=== PATIENT | male | born 1965 | race Caucasian/White ===

== ENCOUNTER 2017-02-08 14:08 | Inpatient (IN) | payer OTHER ==
[~2017-02-08] VITALS: Ht 172.7 cm; Wt 110.1 kg
[2017-02-08] MEDS ORDERED: SODIUM CHLORIDE 0.9% 1,000 ML IV ONE (15:13)
[2017-02-08] MEDS ORDERED: LEVOFLOXACIN/PMX 750MG/150ML 150 ML IVPB ONE (15:30)
[2017-02-08] MEDS ORDERED: ALBUTEROL/IPRATROPIUM 2.5MG/0.5MG, 3 ML NPPB ONE (15:30)
[2017-02-08 15:55] LABS: HEMOGLOBIN 14.6 g/dL (13.7-18.0)
[2017-02-08] MEDS ORDERED: LEVOFLOXACIN/PMX 750MG/150ML 150 ML ONE (15:55)
[2017-02-08 16:07] LABS: BLOOD UREA NITROGEN 27 mg/dL (7-18)
[2017-02-08 16:10] LABS: IS PT STATUS REG ER OR PRE ER? YES
[2017-02-08] MEDS ORDERED: INSULIN DETEMIR 100 UNITS/ML, PEN SQ-INSULIN SCH (17:30)
[2017-02-08] MEDS ORDERED: POLYETHYLENE GLYCOL 17 GM PACKET PO PRN (17:30)
[2017-02-08] MEDS ORDERED: DEXTROSE 4 GM TAB.CHEW PO PRN (17:30)
[2017-02-08] MEDS ORDERED: ONDANSETRON 2MG/ML, 2ML IVP PRN (17:30)
[2017-02-08] MEDS ORDERED: BISACODYL 10 MG SUPP PR PRN (17:30)
[2017-02-08] MEDS ORDERED: ONDANSETRON ODT 4 MG PO PRN (17:30)
[2017-02-08] MEDS ORDERED: ACETAMINOPHEN 325 MG TABLET PO PRN (17:30)
[2017-02-08] MEDS ORDERED: SODIUM CHLORIDE 0.9% 1,000 ML IV SCH (17:30)
[2017-02-08] MEDS ORDERED: DEXTROSE 50%, 50ML SYRINGE IVPush PRN (17:30)
[2017-02-08] MEDS ORDERED: GLUCAGON 1 MG IM PRN (17:30)
[2017-02-08] MEDS ORDERED: DOCUSATE 100 MG CAPSULE PO PRN (17:30)
[2017-02-08] MEDS ORDERED: CEFTRIAXONE PMX 1GM/50ML 50 ML ONE (18:28)
[2017-02-08] MEDS: CEFTRIAXONE PMX 1GM/50ML 50 ML IV SCH (18:29)
[2017-02-08 18:45] VITALS: BP 130/63
[2017-02-08] MEDS ORDERED: OMNIPAQUE 350 MG/ML, 150 ML BOTTLE ONE (18:55)
[2017-02-08] MEDS: HYDROcodone/APAP 5/325 TABLET PO PRN (19:56)
[2017-02-08 20:01] VITALS: BP 130/63
[2017-02-08] MEDS: ATORVASTATIN 10 MG TABLET PO SCH (21:12)
[2017-02-08] MEDS: SODIUM CHLORIDE FLUSH 10ML SYR IVF SCH (21:13)
[2017-02-08] MEDS: methylPREDNISolone SOD SUCC 125 MG/2 ML IVPush SCH (21:13)
[2017-02-08] MEDS: HEPARIN 5,000 UNITS/ML, 1ML SQ SCH (21:13)
[2017-02-08] MEDS: DOXYCYCLINE 50MG CAPSULE PO SCH (21:14)
[2017-02-08] MEDS: NICOTINE 21 MG/24 HR PATCH.TD24 TD SCH (21:19)
[2017-02-08] MEDS: GUAIFENESIN/DM 200-20MG, 10ML UDC PO PRN (21:47)
[2017-02-08] MEDS: SODIUM CHLORIDE 0.9% 1,000 ML IV SCH (22:10)
[2017-02-08] MEDS: INSULIN REGULAR 100 UNITS/ML, 3ML VIAL SQ-INSULIN SCH (22:10)
[2017-02-08 23:51] LABS: RAPID INFLUENZA A Negative (Negative); RAPID INFLUENZA B Negative (Negative)
[2017-02-09] MEDS ORDERED: ALBUTEROL SULFATE 2.5 MG/3 ML NPPB PRN (01:00)
[2017-02-09 03:25] VITALS: BP 111/57
[2017-02-09] MEDS: ASPIRIN 81 MG TABLET EC PO SCH (05:27)
[2017-02-09] MEDS: HEPARIN 5,000 UNITS/ML, 1ML SQ SCH ×3 (05:27→20:49)
[2017-02-09] MEDS: GUAIFENESIN/DM 200-20MG, 10ML UDC PO PRN (05:28)
[2017-02-09] MEDS: SODIUM CHLORIDE 0.9% 1,000 ML IV SCH ×2 (05:29→19:53)
[2017-02-09] MEDS ORDERED: ASPI-496 PO (06:06)
[2017-02-09] MEDS ORDERED: ATOR10TA9 PO (06:06)
[2017-02-09 06:21] LABS: BLOOD UREA NITROGEN 39 mg/dL (7-18)
[2017-02-09] MEDS: ALBUTEROL/IPRATROPIUM 2.5MG/0.5MG, 3 ML NPPB SCH ×4 (07:15→20:42)
[2017-02-09] MEDS: INSULIN REGULAR 100 UNITS/ML, 3ML VIAL SQ-INSULIN SCH ×2 (07:50→11:00)
[2017-02-09] MEDS ORDERED: INSULIN DETEMIR 100 UNITS/ML, PEN SQ-INSULIN SCH (08:00)
[2017-02-09] MEDS: HYDROcodone/APAP 5/325 TABLET PO PRN ×2 (08:20→17:03)
[2017-02-09 08:30] VITALS: BP 104/63
[2017-02-09] MEDS ORDERED: HYDROCHLOROTHIAZIDE 25 MG TABLET PO SCH (09:00)
[2017-02-09] MEDS: SODIUM CHLORIDE FLUSH 10ML SYR IVF SCH ×2 (10:12→20:50)
[2017-02-09] MEDS: methylPREDNISolone SOD SUCC 125 MG/2 ML IVPush SCH ×2 (10:14→20:49)
[2017-02-09] MEDS: LOSARTAN 50MG TABLET PO SCH (10:14)
[2017-02-09] MEDS: DOXYCYCLINE 50MG CAPSULE PO SCH ×2 (10:14→20:50)
[2017-02-09] MEDS: TRIAMTERENE-HCTZ 37.5/25 MG TABLET PO SCH (10:14)
[2017-02-09 11:56] LABS: IS PT STATUS REG ER OR PRE ER? NO
[2017-02-09] MEDS: INSULIN ASPART 100 UNITS/ML, PEN SQ-INSULIN SCH ×3 (12:23→20:04)
[2017-02-09 13:33] LABS: BLOOD UREA NITROGEN 39 mg/dL (7-18)
[2017-02-09 14:41] VITALS: BP 121/68
[2017-02-09] MEDS ORDERED: INSULIN ASPART 100 UNITS/ML, PEN SQ-INSULIN SCH (16:00)
[2017-02-09] MEDS: CEFTRIAXONE PMX 1GM/50ML 50 ML IV SCH (16:52)
[2017-02-09] MEDS: INSULIN DETEMIR 100 UNITS/ML, PEN SQ-INSULIN SCH ×2 (17:20→20:01)
[2017-02-09 19:45] VITALS: BP 119/67
[2017-02-09] MEDS: ATORVASTATIN 10 MG TABLET PO SCH (20:49)
[2017-02-09] MEDS: NICOTINE 21 MG/24 HR PATCH.TD24 TD SCH (20:50)
[2017-02-10 03:37] VITALS: BP 126/70
[2017-02-10 05:08] LABS: HEMOGLOBIN 14.9 g/dL (13.7-18.0)
[2017-02-10] MEDS: HEPARIN 5,000 UNITS/ML, 1ML SQ SCH ×3 (05:11→21:02)
[2017-02-10] MEDS: ASPIRIN 81 MG TABLET EC PO SCH (05:11)
[2017-02-10] MEDS: INSULIN ASPART 100 UNITS/ML, PEN SQ-INSULIN SCH ×4 (05:12→21:04)
[2017-02-10 05:25] LABS: ASPARTATE AMINO TRANSFERASE 41 U/L (15-37); BLOOD UREA NITROGEN 38 mg/dL (7-18)
[2017-02-10] MEDS: INSULIN DETEMIR 100 UNITS/ML, PEN SQ-INSULIN SCH ×3 (05:51→16:31)
[2017-02-10 07:14] VITALS: BP 122/73
[2017-02-10] MEDS: ALBUTEROL/IPRATROPIUM 2.5MG/0.5MG, 3 ML NPPB SCH ×4 (07:25→19:16)
[2017-02-10] MEDS: SODIUM CHLORIDE 0.9% 1,000 ML IV SCH ×2 (09:22→23:44)
[2017-02-10] MEDS: SODIUM CHLORIDE FLUSH 10ML SYR IVF SCH ×2 (09:23→21:02)
[2017-02-10] MEDS: methylPREDNISolone SOD SUCC 125 MG/2 ML IVPush SCH ×2 (09:26→21:02)
[2017-02-10] MEDS: TRIAMTERENE-HCTZ 37.5/25 MG TABLET PO SCH (09:28)
[2017-02-10] MEDS: LOSARTAN 50MG TABLET PO SCH (09:28)
[2017-02-10] MEDS: DOXYCYCLINE 50MG CAPSULE PO SCH ×2 (09:29→21:03)
[2017-02-10] MEDS: GUAIFENESIN/DM 200-20MG, 10ML UDC PO PRN ×2 (10:04→17:21)
[2017-02-10 11:37] LABS: BLOOD UREA NITROGEN 35 mg/dL (7-18)
[2017-02-10] MEDS ORDERED: SODIUM POLYSTYRENE SULFONATE ORAL SUSP PO ONE (12:00)
[2017-02-10] MEDS ORDERED: INSULIN ASPART 100 UNITS/ML, PEN SQ-INSULIN ONE (12:30)
[2017-02-10 13:12] VITALS: BP 101/55
[2017-02-10] MEDS: CEFTRIAXONE PMX 1GM/50ML 50 ML IV SCH (17:18)
[2017-02-10] MEDS: HYDROcodone/APAP 5/325 TABLET PO PRN (20:11)
[2017-02-10 20:34] VITALS: BP 120/63
[2017-02-10] MEDS: NICOTINE 21 MG/24 HR PATCH.TD24 TD SCH (21:00)
[2017-02-10] MEDS: ATORVASTATIN 10 MG TABLET PO SCH (21:01)
[2017-02-11 03:07] VITALS: BP 120/71
[2017-02-11] MEDS: ASPIRIN 81 MG TABLET EC PO SCH (05:48)
[2017-02-11] MEDS: HEPARIN 5,000 UNITS/ML, 1ML SQ SCH ×2 (05:48→13:00)
[2017-02-11 06:43] LABS: BLOOD UREA NITROGEN 31 mg/dL (7-18)
[2017-02-11 07:10] VITALS: BP 112/67
[2017-02-11] MEDS: ALBUTEROL/IPRATROPIUM 2.5MG/0.5MG, 3 ML NPPB SCH ×3 (07:15→13:56)
[2017-02-11] MEDS: INSULIN ASPART 100 UNITS/ML, PEN SQ-INSULIN SCH ×2 (07:29→11:56)
[2017-02-11] MEDS: INSULIN DETEMIR 100 UNITS/ML, PEN SQ-INSULIN SCH (07:51)
[2017-02-11] MEDS: DOXYCYCLINE 50MG CAPSULE PO SCH (09:49)
[2017-02-11] MEDS: LOSARTAN 50MG TABLET PO SCH (09:50)
[2017-02-11] MEDS: SODIUM CHLORIDE FLUSH 10ML SYR IVF SCH (09:50)
[2017-02-11] MEDS: methylPREDNISolone SOD SUCC 125 MG/2 ML IVPush SCH (09:50)
[2017-02-11] MEDS ORDERED: CEFD300C2 PO (11:22)
[2017-02-11] MEDS ORDERED: IPRA3AMP NPPB (11:22)
[2017-02-11] MEDS ORDERED: DOXY50CA42 PO (11:22)
[2017-02-11] MEDS ORDERED: ALBU8.5H3 INH (11:22)
[2017-02-11] MEDS ORDERED: PRED20TA PO (11:22)
[2017-02-11] MEDS: SODIUM CHLORIDE 0.9% 1,000 ML IV SCH (11:37)
[2017-02-11 13:48] VITALS: BP 116/54
== END 2017-02-11 14:53 | disposition home or self-care (01) | DRG 189 ==
LOC: ED 15:31 → EDIP 16:50 → 4NOR 18:35 → DCLOUNGE 02-11 14:31
PROVIDERS: ADMIT Internal Medicine; ATTEND Internal Medicine
DX: J96.01 Acute respiratory failure with hypoxia (principal); J44.1 Chronic obstructive pulmonary disease with (acute) exacerbation; E87.1 Hypo-osmolality and hyponatremia; E78.00 Pure hypercholesterolemia, unspecified; E78.5 Hyperlipidemia, unspecified; F17.210 Nicotine dependence, cigarettes, uncomplicated; G47.33 Obstructive sleep apnea (adult) (pediatric); E87.5 Hyperkalemia; I12.9 Hypertensive chronic kidney disease with stage 1 through stage 4 chronic kidney disease, or unspecified chronic kidney disease; N18.9 Chronic kidney disease, unspecified; E10.22 Type 1 diabetes mellitus with diabetic chronic kidney disease; N28.9 Disorder of kidney and ureter, unspecified; Z82.49 Family history of ischemic heart disease and other diseases of the circulatory system; Z82.5 Family history of asthma and other chronic lower respiratory diseases; Z98.890 Other specified postprocedural states; Z79.4 Long term (current) use of insulin; Z79.899 Other long term (current) drug therapy; Z71.6 Tobacco abuse counseling
CPT/HCPCS: 36415; 71010; 71275; 80048; 80053; 82040; 82962; 84132; 84484; 85025; 87400; 93005; 94640; 96374; J0696; J1644; J1815; J1956; J7620; Q9967; J2930; J7030; J7512

== ENCOUNTER → 2017-05-13 | Outpatient (CLI) | payer OTHER ==
[~2017-05-13] MED LIST: ALBU8.5H3 INH; ASPI-496 PO; ATOR10TA9 PO; CEFD300C37 PO; DOXY50CA42 PO; IPRA3AMP NPPB; PRED20TA PO
== END | disposition home or self-care (01) ==
LOC: CARD 14:24
PROVIDERS: ATTEND Internal Medicine Critical Care Medicine
DX: R06.02 Shortness of breath (principal)
CPT/HCPCS: 94060; 94620; 94726; 94729

== ENCOUNTER → 2018-02-09 | Outpatient (CLI) | payer OTHER ==
[~2018-02-09] MED LIST changes: -ALBU8.5H3 INH; +ALBU8.5H8 INH
== END | disposition home or self-care (01) ==
LOC: CFH 08:51
PROVIDERS: ATTEND Registered Nurse
DX: Z12.2 Encounter for screening for malignant neoplasm of respiratory organs (principal); I25.10 Atherosclerotic heart disease of native coronary artery without angina pectoris; Z87.891 Personal history of nicotine dependence
CPT/HCPCS: G0297

== ENCOUNTER 2020-10-09 11:03 | Inpatient (IN) | payer OTHER ==
[~2020-10-09] VITALS: Ht 170.2 cm; Wt 120.3 kg
[~2020-10-09 11:03] MED LIST changes: -IPRA3AMP NPPB; +IPRA3AMP30 NPPB
[2020-10-09] MEDS ORDERED: ALBUTEROL/IPRATROPIUM 2.5MG/0.5MG, 3 ML ONE (11:45)
[2020-10-09] MEDS: ALBUTEROL/IPRATROPIUM 2.5MG/0.5MG, 3 ML NPPB SCH ×2 (11:48→13:11)
[2020-10-09 12:08] LABS: MEAN CORPUSCULAR HEMOGLOBIN 29.8 pg (27.5-34.5); MEAN CORPUSCULAR HGB CONC 32.1 g/dL (33.2-36.2); MEAN PLATELET VOLUME 7.5 fL (7.4-10.4); PLATELET COUNT 327 x10^3/uL (130-400); RED BLOOD COUNT 4.21 x10^6/uL (4.38-5.82); RED CELL DISTRIBUTION WIDTH 15.9 % (9.4-14.8)
[2020-10-09 12:19] LABS: ALBUMIN 2.2 g/dL (3.4-5.0); ANION GAP 11 mmol/L (5-15); CALCIUM 10.5 mg/dL (8.5-10.1); CHLORIDE 99 mmol/L (98-107)
[2020-10-09 12:27] LABS: CREATININE 3.44 mg/dL (0.7-1.3); TROPONIN I < 0.015 ng/mL (0.000-0.045)
[2020-10-09] MEDS ORDERED: SODIUM CHLORIDE FLUSH 10ML SYR IVF ONE (12:30)
[2020-10-09 12:45] LABS: MD YES
[2020-10-09 12:47] LABS: BAND#(MANUAL) 5.33 x10^3/uL; BANDS%(MANUAL) 36 % (0-7); LYMPH#(MANUAL) 0.59 x10^3/uL (1-3.4); LYMPHS% (MANUAL) 4 % (22-44); METAMYELOCYTES# (MANUAL) 0.15 x10^3/uL (0-0); METAMYELOCYTES% (MANUAL) 1 % (0-1); MONOS#(MANUAL) 1.78 x10^3/uL (0.3-2.7); MONOS% (MANUAL) 12 % (2-9); SEG#(MANUAL) 6.96 x10^3/uL (1.8-6.8); SEGS% (MANUAL) 47 % (42-75)
[2020-10-09 12:48] LABS: <PLATELET ESTIMATE> ADEQUATE; <PLT MORPHOLOGY> NORMAL PLT MORPH; <RBC MORPHOLOGY> NORMAL; PMNS WITH VACUOLES 1+
[2020-10-09] MEDS ORDERED: CEFTRIAXONE PMX 1GM/50ML 50 ML IVPB ONE (13:00)
[2020-10-09] MEDS ORDERED: CEFTRIAXONE PMX 1GM/50ML 50 ML ONE (13:10)
[2020-10-09 13:21] LABS: PLATELET (DIC) 326 x10^3/uL (130-400)
[2020-10-09 13:41] LABS: C-REACTIVE PROTEIN, QUANT > 19.00 mg/dL (0.02-0.49)
[2020-10-09 13:51] LABS: D-DIMER (DIC) 0.77 ug/mlFEU (0.00-0.52); FIBRINOGEN > 860 mg/dL (200-340); PROTIME 11.9 Seconds (9.6-11.5); PTT 35 Seconds (25-31)
[2020-10-09] MEDS ORDERED: morphine SULFATE 10 MG/ML, 1ML IVPush PRN (14:00)
[2020-10-09] MEDS ORDERED: DEXTROSE 4 GM TAB.CHEW PO PRN (14:00)
[2020-10-09] MEDS ORDERED: PHARMACY MAY ADJ FOR RENAL FX MC PRN (14:00)
[2020-10-09] MEDS ORDERED: PHARMACY MAY ADJ FOR RENAL FX MC SCH (14:00)
[2020-10-09] MEDS ORDERED: ONDANSETRON ODT 4 MG PO PRN (14:00)
[2020-10-09] MEDS ORDERED: SODIUM CHLORIDE 0.9% 1,000ML IV ONE (14:00)
[2020-10-09] MEDS ORDERED: ONDANSETRON 2MG/ML, 2ML IVPush PRN (14:00)
[2020-10-09] MEDS ORDERED: DEXTROSE 50%, 50ML SYRINGE IVPush PRN (14:00)
[2020-10-09] MEDS ORDERED: GLUCAGON 1 MG IM PRN (14:00)
[2020-10-09] MEDS ORDERED: ENALAPRILAT 1.25 MG/ML, 2ML IVPush PRN (14:00)
[2020-10-09 14:42] LABS: MEAN CORPUSCULAR HEMOGLOBIN 30.3 pg (27.5-34.5); MEAN CORPUSCULAR HGB CONC 33.1 g/dL (33.2-36.2); MEAN PLATELET VOLUME 7.6 fL (7.4-10.4); PLATELET COUNT 294 x10^3/uL (130-400); RED BLOOD COUNT 3.94 x10^6/uL (4.38-5.82); RED CELL DISTRIBUTION WIDTH 15.8 % (9.4-14.8)
[2020-10-09 14:51] LABS: ALANINE AMINOTRANSFERASE 27 U/L (12-78); ANION GAP 10 mmol/L (5-15); CHLORIDE 103 mmol/L (98-107); CREATININE 3.09 mg/dL (0.7-1.3)
[2020-10-09 14:53] LABS: ALKALINE PHOSPHATASE 104 U/L (45-117); BILIRUBIN,TOTAL 1.1 mg/dL (0.2-1.0); TOTAL PROTEIN 6.9 g/dL (6.4-8.2)
[2020-10-09] MEDS ORDERED: HEPARIN 5,000 UNITS/ML, 1ML ONE (14:59)
[2020-10-09] MEDS ORDERED: methylPREDNISolone SOD SUCC 125 MG/2 ML ONE ×2 (14:59→20:36)
[2020-10-09] MEDS ORDERED: INSULIN SINGLE DOSE, ER ONE (15:00)
[2020-10-09 15:03] LABS: MD YES
[2020-10-09] MEDS: SODIUM CHLORIDE 0.9% 1,000 ML IV SCH ×3 (15:04→21:50)
[2020-10-09] MEDS: HEPARIN 5,000 UNITS/ML, 1ML SQ SCH ×2 (15:05→23:11)
[2020-10-09] MEDS: AZITHROMYCIN 500 MG in SODIUM CHLORIDE 0.9% 250 ML IVPB SCH (15:05)
[2020-10-09] MEDS: methylPREDNISolone SOD SUCC 125 MG/2 ML IVPush SCH ×2 (15:05→20:31)
[2020-10-09 15:06] LABS: BAND#(MANUAL) 3.94 x10^3/uL; BANDS%(MANUAL) 27 % (0-7); LYMPH#(MANUAL) 0.44 x10^3/uL (1-3.4); LYMPHS% (MANUAL) 3 % (22-44); METAMYELOCYTES# (MANUAL) 1.31 x10^3/uL (0-0); METAMYELOCYTES% (MANUAL) 9 % (0-1); MONOS#(MANUAL) 0.58 x10^3/uL (0.3-2.7); MONOS% (MANUAL) 4 % (2-9); SEG#(MANUAL) 8.32 x10^3/uL (1.8-6.8); SEGS% (MANUAL) 57 % (42-75)
[2020-10-09] MEDS: INSULIN REGULAR 100 UNITS/ML, 3ML VIAL SQ-INSULIN SCH ×2 (15:06→20:30)
[2020-10-09 15:07] LABS: <PLATELET ESTIMATE> ADEQUATE; <PLT MORPHOLOGY> NORMAL PLT MORPH; <RBC MORPHOLOGY> NORMAL; PMNS WITH VACUOLES 1+
[2020-10-09] MEDS ORDERED: ATORVASTATIN 20 MG TABLET ONE (18:41)
[2020-10-09 18:52] LABS: MICROSCOPIC NOT IND
--- NOTE | 2020-10-09 19:00 | NUR ---
PT PLACED ON HOSPITAL BED.
--- NOTE | 2020-10-09 19:15 | NUR ---
PT PLACED ON CPAP BY RT.
[2020-10-09] MEDS: ATORVASTATIN 10 MG TABLET PO SCH (19:38)
[2020-10-09] MEDS: ALBUTEROL-IPRATROPIUM MDI INH INH SCH (19:38)
[2020-10-09] MEDS: SODIUM CHLORIDE FLUSH 10ML SYR IVF SCH (19:38)
--- NOTE | 2020-10-09 19:50 | NUR ---
REMOVED CPAP FOR INSPECTOR WATCH TRAIN. PT WOULD LIKE TO KEEP OFF FOW AWHILE.
[2020-10-09] MEDS ORDERED: INSULIN LISPRO SINGLE DOSE, ER SQ-INSULIN ONE (20:37)
[2020-10-09] MEDS ORDERED: INSULIN GLARGINE 100 UNITS/ML, PEN SQ-INSULIN SCH (21:00)
[2020-10-09] MEDS ORDERED: MELATONIN 5 MG TABLET PO PRN (21:00)
[2020-10-09 21:33] VITALS: BP 145/75
[2020-10-10 00:46] VITALS: BP 109/76
[2020-10-10] MEDS: SODIUM CHLORIDE 0.9% 1,000 ML IV SCH ×4 (02:00→12:16)
[2020-10-10] MEDS: INSULIN REGULAR 100 UNITS/ML, 3ML VIAL SQ-INSULIN SCH ×4 (02:00→20:38)
[2020-10-10] MEDS: methylPREDNISolone SOD SUCC 125 MG/2 ML IVPush SCH ×2 (02:49→09:24)
[2020-10-10] MEDS: ALBUTEROL HFA 90 MCG/SPRAY INH PRN (05:42)
[2020-10-10] MEDS: ALBUTEROL-IPRATROPIUM MDI INH INH SCH ×4 (05:44→20:19)
[2020-10-10 05:52] LABS: MEAN CORPUSCULAR HEMOGLOBIN 30.7 pg (27.5-34.5); MEAN CORPUSCULAR HGB CONC 33.3 g/dL (33.2-36.2); MEAN PLATELET VOLUME 7.8 fL (7.4-10.4); PLATELET COUNT 378 x10^3/uL (130-400); RED BLOOD COUNT 4.13 x10^6/uL (4.38-5.82); RED CELL DISTRIBUTION WIDTH 16.1 % (9.4-14.8)
[2020-10-10 06:49] VITALS: BP 143/90
[2020-10-10 06:55] LABS: MD YES
[2020-10-10 06:56] LABS: BAND#(MANUAL) 3.32 x10^3/uL; BANDS%(MANUAL) 27 % (0-7); EOS#(MANUAL) 0.12 x10^3/uL (0.0-0.4); EOS% (MANUAL) 1 % (1-7); LYMPH#(MANUAL) 0.74 x10^3/uL (1-3.4); LYMPHS% (MANUAL) 6 % (22-44); MONOS#(MANUAL) 0.62 x10^3/uL (0.3-2.7); MONOS% (MANUAL) 5 % (2-9); SEGS% (MANUAL) 61 % (42-75)
[2020-10-10 06:57] LABS: <PLATELET ESTIMATE> INCREASED; <PLT MORPHOLOGY> NORMAL PLT MORPH; <RBC MORPHOLOGY> NORMAL; PMNS WITH VACUOLES 1+
[2020-10-10] MEDS ORDERED: INSULIN REGULAR 100 UNITS/ML, 3ML VIAL SQ-INSULIN SCH (08:00)
[2020-10-10] MEDS: HEPARIN 5,000 UNITS/ML, 1ML SQ SCH ×2 (09:24→15:35)
[2020-10-10] MEDS: ASPIRIN 81 MG TABLET EC PO SCH (09:26)
[2020-10-10] MEDS: SODIUM CHLORIDE FLUSH 10ML SYR IVF SCH ×2 (09:26→20:19)
[2020-10-10 10:24] LABS: CHLORIDE 105 mmol/L (98-107)
[2020-10-10 10:25] LABS: ALANINE AMINOTRANSFERASE 35 U/L (12-78); ALBUMIN 2.2 g/dL (3.4-5.0); ALKALINE PHOSPHATASE 122 U/L (45-117); ANION GAP 10 mmol/L (5-15); BILIRUBIN,TOTAL 0.5 mg/dL (0.2-1.0); CALCIUM 10.2 mg/dL (8.5-10.1); CREATININE 2.52 mg/dL (0.7-1.3); TOTAL PROTEIN 7.7 g/dL (6.4-8.2)
[2020-10-10 13:03] VITALS: BP 121/70
[2020-10-10] MEDS: CEFTRIAXONE PMX 1GM/50ML 50 ML IV SCH (14:09)
[2020-10-10] MEDS: AZITHROMYCIN 500 MG in SODIUM CHLORIDE 0.9% 250 ML IVPB SCH (15:35)
[2020-10-10] MEDS: INSULIN DEGLUDEC SQ SCH (17:51)
[2020-10-10 19:44] VITALS: BP 132/78
[2020-10-10] MEDS: GUAIFENESIN/DM 200-20MG, 10ML UDC PO PRN (20:18)
[2020-10-10] MEDS: ATORVASTATIN 10 MG TABLET PO SCH (20:18)
[2020-10-10] MEDS: ACETAMINOPHEN 325 MG TABLET PO PRN (20:37)
[2020-10-11] MEDS: INSULIN REGULAR 100 UNITS/ML, 3ML VIAL SQ-INSULIN SCH ×6 (00:44→20:00)
[2020-10-11] MEDS: HEPARIN 5,000 UNITS/ML, 1ML SQ SCH ×3 (00:46→16:22)
[2020-10-11 00:48] VITALS: BP 159/78
[2020-10-11] MEDS: SODIUM CHLORIDE 0.9% 1,000 ML IV SCH (02:05)
[2020-10-11] MEDS: ALBUTEROL HFA 90 MCG/SPRAY INH PRN (05:29)
[2020-10-11 06:50] VITALS: BP 153/75
[2020-10-11 07:09] LABS: MEAN CORPUSCULAR HEMOGLOBIN 30.1 pg (27.5-34.5); MEAN CORPUSCULAR HGB CONC 32.5 g/dL (33.2-36.2); MEAN PLATELET VOLUME 7.5 fL (7.4-10.4); PLATELET COUNT 397 x10^3/uL (130-400); RED BLOOD COUNT 4.24 x10^6/uL (4.38-5.82)
[2020-10-11 07:22] LABS: ANION GAP 7 mmol/L (5-15); CALCIUM 9.6 mg/dL (8.5-10.1); CHLORIDE 110 mmol/L (98-107)
[2020-10-11] MEDS ORDERED: LOSA100T14 PO (07:42)
[2020-10-11] MEDS ORDERED: TRIA1TAB3 PO (07:42)
[2020-10-11 08:09] LABS: MD YES
[2020-10-11 08:12] LABS: BAND#(MANUAL) 2.38 x10^3/uL; BANDS%(MANUAL) 13 % (0-7); LYMPH#(MANUAL) 0.73 x10^3/uL (1-3.4); LYMPHS% (MANUAL) 4 % (22-44); MONOS#(MANUAL) 1.65 x10^3/uL (0.3-2.7); MONOS% (MANUAL) 9 % (2-9); MYELOCYTES# (MANUAL) 0.37 x10^3/uL (0-0); MYELOCYTES% (MANUAL) 2 % (0-0)
[2020-10-11 08:13] LABS: <PLATELET ESTIMATE> ADEQUATE; <PLT MORPHOLOGY> NORMAL PLT MORPH; <RBC MORPHOLOGY> NORMAL; SEGS% (MANUAL) 72 % (42-75)
[2020-10-11] MEDS: SODIUM CHLORIDE FLUSH 10ML SYR IVF SCH ×2 (08:20→21:00)
[2020-10-11] MEDS: ASPIRIN 81 MG TABLET EC PO SCH (08:21)
[2020-10-11] MEDS: ALBUTEROL-IPRATROPIUM MDI INH INH SCH ×4 (08:21→21:00)
[2020-10-11 14:06] VITALS: BP 158/73
[2020-10-11] MEDS: CEFTRIAXONE PMX 1GM/50ML 50 ML IV SCH (14:35)
[2020-10-11] MEDS ORDERED: SODIUM CHLORIDE NASAL SPRAY 45ML BOTTLE NAS PRN (15:00)
[2020-10-11] MEDS: AZITHROMYCIN 500 MG in SODIUM CHLORIDE 0.9% 250 ML IVPB SCH (15:08)
[2020-10-11] MEDS: INSULIN DEGLUDEC SQ SCH (18:10)
[2020-10-11 20:49] VITALS: BP 184/76
[2020-10-11] MEDS: ATORVASTATIN 10 MG TABLET PO SCH (21:57)
[2020-10-12] MEDS: HEPARIN 5,000 UNITS/ML, 1ML SQ SCH ×4 (00:10→23:48)
[2020-10-12 00:48] VITALS: BP 169/79
[2020-10-12] MEDS: INSULIN REGULAR 100 UNITS/ML, 3ML VIAL SQ-INSULIN SCH ×7 (04:00→23:49)
[2020-10-12] MEDS: ALBUTEROL-IPRATROPIUM MDI INH INH SCH ×4 (04:13→19:45)
[2020-10-12 07:16] VITALS: BP 166/79
[2020-10-12 08:14] LABS: MEAN CORPUSCULAR HGB CONC 33.5 g/dL (33.2-36.2); MEAN PLATELET VOLUME 7.2 fL (7.4-10.4); PLATELET COUNT 462 x10^3/uL (130-400); RED CELL DISTRIBUTION WIDTH 16.6 % (9.4-14.8)
[2020-10-12 08:29] LABS: ANION GAP 6 mmol/L (5-15); CALCIUM 9.7 mg/dL (8.5-10.1); CHLORIDE 103 mmol/L (98-107); CREATININE 1.36 mg/dL (0.7-1.3)
[2020-10-12 08:55] LABS: MD YES
[2020-10-12 08:56] LABS: BAND#(MANUAL) 0.45 x10^3/uL; BANDS%(MANUAL) 2 % (0-7); LYMPH#(MANUAL) 2.26 x10^3/uL (1-3.4); LYMPHS% (MANUAL) 10 % (22-44); METAMYELOCYTES# (MANUAL) 0.23 x10^3/uL (0-0); METAMYELOCYTES% (MANUAL) 1 % (0-1); MONOS#(MANUAL) 2.26 x10^3/uL (0.3-2.7); MONOS% (MANUAL) 10 % (2-9); MYELOCYTES# (MANUAL) 1.36 x10^3/uL (0-0); MYELOCYTES% (MANUAL) 6 % (0-0); SEG#(MANUAL) 16.05 x10^3/uL (1.8-6.8); SEGS% (MANUAL) 71 % (42-75)
[2020-10-12 08:57] LABS: <PLATELET ESTIMATE> INCREASED; <PLT MORPHOLOGY> NORMAL PLT MORPH; ANISOCYTOSIS 1+
[2020-10-12] MEDS: SODIUM CHLORIDE FLUSH 10ML SYR IVF SCH ×2 (09:08→19:44)
[2020-10-12] MEDS: ASPIRIN 81 MG TABLET EC PO SCH (09:08)
[2020-10-12] MEDS: ACETAMINOPHEN 325 MG TABLET PO PRN ×2 (09:16→20:47)
[2020-10-12] MEDS: GUAIFENESIN 200 MG TABLET PO SCH ×3 (12:15→19:43)
[2020-10-12] MEDS: CEFTRIAXONE PMX 1GM/50ML 50 ML IV SCH (14:22)
[2020-10-12] MEDS: AZITHROMYCIN 500 MG in SODIUM CHLORIDE 0.9% 250 ML IVPB SCH (15:48)
[2020-10-12] MEDS: INSULIN DEGLUDEC SQ SCH (17:47)
[2020-10-12 19:35] VITALS: BP 152/71
[2020-10-12] MEDS: ATORVASTATIN 10 MG TABLET PO SCH (19:43)
[2020-10-12 23:53] VITALS: BP 162/68
[2020-10-13] MEDS: INSULIN REGULAR 100 UNITS/ML, 3ML VIAL SQ-INSULIN SCH (04:00)
[2020-10-13] MEDS: ALBUTEROL-IPRATROPIUM MDI INH INH SCH ×4 (05:29→21:14)
[2020-10-13] MEDS: GUAIFENESIN 200 MG TABLET PO SCH ×4 (05:29→21:14)
[2020-10-13] MEDS: ACETAMINOPHEN 325 MG TABLET PO PRN ×4 (05:35→21:27)
[2020-10-13 07:34] VITALS: BP 153/79
[2020-10-13 07:53] LABS: MEAN CORPUSCULAR HEMOGLOBIN 30.1 pg (27.5-34.5); MEAN CORPUSCULAR HGB CONC 32.6 g/dL (33.2-36.2); MEAN PLATELET VOLUME 7.1 fL (7.4-10.4); PLATELET COUNT 361 x10^3/uL (130-400); RED BLOOD COUNT 4.62 x10^6/uL (4.38-5.82); RED CELL DISTRIBUTION WIDTH 16.1 % (9.4-14.8)
[2020-10-13 07:56] LABS: ALANINE AMINOTRANSFERASE 54 U/L (12-78); ALBUMIN 2.1 g/dL (3.4-5.0); ANION GAP 5 mmol/L (5-15); CALCIUM 8.9 mg/dL (8.5-10.1); CHLORIDE 101 mmol/L (98-107); CREATININE 1.25 mg/dL (0.7-1.3)
[2020-10-13 07:59] LABS: ALKALINE PHOSPHATASE 123 U/L (45-117); BILIRUBIN,TOTAL 0.4 mg/dL (0.2-1.0); TOTAL PROTEIN 7.4 g/dL (6.4-8.2)
[2020-10-13] MEDS ORDERED: VANCOMYCIN PER PHARMACY MC PRN (08:00)
[2020-10-13] MEDS ORDERED: PHARMACOKINETIC CONSULTATION MC ONE (08:00)
[2020-10-13] MEDS ORDERED: PHARMACOKINETIC MONITORING MC PRN (08:00)
[2020-10-13] MEDS: ASPIRIN 81 MG TABLET EC PO SCH (08:11)
[2020-10-13] MEDS: HEPARIN 5,000 UNITS/ML, 1ML SQ SCH ×3 (08:11→23:40)
[2020-10-13] MEDS: SODIUM CHLORIDE FLUSH 10ML SYR IVF SCH ×2 (08:11→21:15)
[2020-10-13 08:51] LABS: MD YES
[2020-10-13 08:55] LABS: BAND#(MANUAL) 0.94 x10^3/uL; BANDS%(MANUAL) 4 % (0-7); LYMPHS% (MANUAL) 6 % (22-44); METAMYELOCYTES# (MANUAL) 0.47 x10^3/uL (0-0); METAMYELOCYTES% (MANUAL) 2 % (0-1); MONOS% (MANUAL) 6 % (2-9); MYELOCYTES# (MANUAL) 0.23 x10^3/uL (0-0); MYELOCYTES% (MANUAL) 1 % (0-0); REACTIVE LYMPHS # (MANUAL) 0.23 x10^3/uL (0-0); REACTIVE LYMPHS % (MANUAL) 1 % (0-0); SEG#(MANUAL) 18.72 x10^3/uL (1.8-6.8); SEGS% (MANUAL) 80 % (42-75)
[2020-10-13 08:57] LABS: ANISOCYTOSIS 1+
[2020-10-13 08:58] LABS: <PLATELET ESTIMATE> ADEQUATE; <PLT MORPHOLOGY> NORMAL PLT MORPH; PMNS WITH VACUOLES 1+
[2020-10-13] MEDS: PIPERACILLIN/TAZO/PMX 4.5GM 100 ML IV SCH ×3 (10:12→23:41)
[2020-10-13] MEDS: ALBUTEROL HFA 90 MCG/SPRAY INH PRN ×2 (10:18→16:48)
[2020-10-13] MEDS: VANCOMYCIN 2,500 MG in SODIUM CHLORIDE 0.9% 500 ML IV SCH (10:58)
[2020-10-13 12:18] VITALS: BP_SYST 140; BP_SYST 153; BP_DIAS 79
[2020-10-13] MEDS: INSULIN LISPRO 100 UNITS/ML, PEN SQ-INSULIN SCH ×2 (16:50→21:00)
[2020-10-13] MEDS ORDERED: INSULIN DEGLUDEC SQ SCH (18:00)
[2020-10-13 20:34] VITALS: BP 160/65
[2020-10-13] MEDS: ATORVASTATIN 10 MG TABLET PO SCH (21:14)
[2020-10-14 03:55] VITALS: BP 146/78
[2020-10-14] MEDS: ALBUTEROL-IPRATROPIUM MDI INH INH SCH ×4 (05:04→21:54)
[2020-10-14] MEDS: GUAIFENESIN 200 MG TABLET PO SCH ×4 (05:05→21:56)
[2020-10-14] MEDS: PIPERACILLIN/TAZO/PMX 4.5GM 100 ML IV SCH ×4 (05:05→22:53)
[2020-10-14] MEDS: ACETAMINOPHEN 325 MG TABLET PO PRN (05:09)
[2020-10-14] MEDS: INSULIN LISPRO 100 UNITS/ML, PEN SQ-INSULIN SCH ×4 (07:00→20:52)
[2020-10-14 07:16] LABS: MEAN CORPUSCULAR HEMOGLOBIN 29.8 pg (27.5-34.5); MEAN CORPUSCULAR HGB CONC 32.4 g/dL (33.2-36.2); PLATELET COUNT 373 x10^3/uL (130-400); RED BLOOD COUNT 4.53 x10^6/uL (4.38-5.82); RED CELL DISTRIBUTION WIDTH 16.1 % (9.4-14.8)
[2020-10-14 07:26] VITALS: BP 130/73
[2020-10-14 07:30] LABS: ANION GAP 6 mmol/L (5-15); CHLORIDE 101 mmol/L (98-107)
[2020-10-14 07:31] LABS: CREATININE 1.27 mg/dL (0.7-1.3)
[2020-10-14 07:56] LABS: MD YES
[2020-10-14 07:58] LABS: BAND#(MANUAL) 1.02 x10^3/uL; BANDS%(MANUAL) 4 % (0-7); LYMPH#(MANUAL) 1.02 x10^3/uL (1-3.4); LYMPHS% (MANUAL) 4 % (22-44); METAMYELOCYTES# (MANUAL) 0.77 x10^3/uL (0-0); METAMYELOCYTES% (MANUAL) 3 % (0-1); MONOS#(MANUAL) 1.79 x10^3/uL (0.3-2.7); MONOS% (MANUAL) 7 % (2-9); MYELOCYTES# (MANUAL) 0.26 x10^3/uL (0-0); MYELOCYTES% (MANUAL) 1 % (0-0); SEG#(MANUAL) 20.74 x10^3/uL (1.8-6.8); SEGS% (MANUAL) 81 % (42-75)
[2020-10-14 07:59] LABS: <PLATELET ESTIMATE> ADEQUATE; <PLT MORPHOLOGY> NORMAL PLT MORPH; <RBC MORPHOLOGY> NORMAL
[2020-10-14] MEDS: SODIUM CHLORIDE FLUSH 10ML SYR IVF SCH ×2 (08:19→22:05)
[2020-10-14] MEDS: ASPIRIN 81 MG TABLET EC PO SCH (08:19)
[2020-10-14] MEDS: HEPARIN 5,000 UNITS/ML, 1ML SQ SCH (08:19)
[2020-10-14] MEDS: OxyconTIN ER 10 MG TAB.ER PO SCH ×2 (10:31→21:56)
[2020-10-14] MEDS: ALBUTEROL HFA 90 MCG/SPRAY INH PRN ×2 (10:31→15:08)
[2020-10-14] MEDS: VANCOMYCIN 2,500 MG in SODIUM CHLORIDE 0.9% 500 ML IV SCH (12:27)
[2020-10-14 12:45] VITALS: BP 127/62
[2020-10-14] MEDS ORDERED: INSULIN DEGLUDEC SQ SCH (18:00)
[2020-10-14 19:08] VITALS: BP 155/82
[2020-10-14] MEDS: ATORVASTATIN 10 MG TABLET PO SCH (21:56)
[2020-10-15 01:07] VITALS: BP 146/83
[2020-10-15] MEDS: PIPERACILLIN/TAZO/PMX 4.5GM 100 ML IV SCH ×5 (04:43→17:58)
[2020-10-15] MEDS: GUAIFENESIN 200 MG TABLET PO SCH ×4 (04:48→20:12)
[2020-10-15] MEDS: ALBUTEROL-IPRATROPIUM MDI INH INH SCH ×3 (04:51→15:35)
[2020-10-15 06:46] LABS: ALANINE AMINOTRANSFERASE 38 U/L (12-78); ALBUMIN 1.9 g/dL (3.4-5.0); ANION GAP 5 mmol/L (5-15); CHLORIDE 97 mmol/L (98-107); CREATININE 1.19 mg/dL (0.7-1.3)
[2020-10-15 06:48] LABS: MEAN CORPUSCULAR HEMOGLOBIN 30.1 pg (27.5-34.5); MEAN CORPUSCULAR HGB CONC 32.4 g/dL (33.2-36.2); MEAN PLATELET VOLUME 7.1 fL (7.4-10.4); PLATELET COUNT 348 x10^3/uL (130-400); RED BLOOD COUNT 4.38 x10^6/uL (4.38-5.82); RED CELL DISTRIBUTION WIDTH 16.5 % (9.4-14.8)
[2020-10-15 06:49] LABS: ALKALINE PHOSPHATASE 109 U/L (45-117); BILIRUBIN,TOTAL 0.5 mg/dL (0.2-1.0); TOTAL PROTEIN 6.9 g/dL (6.4-8.2)
[2020-10-15] MEDS: INSULIN LISPRO 100 UNITS/ML, PEN SQ-INSULIN SCH ×2 (07:00→11:00)
[2020-10-15] MEDS ORDERED: EPINEPHRINE 1 MG/ML, 1ML ONE ×2 (07:02→11:24)
[2020-10-15] MEDS ORDERED: BUPIVACAINE/PF 0.5% ONE ×2 (07:02→11:24)
[2020-10-15 07:15] VITALS: BP 118/80
[2020-10-15] MEDS: ASPIRIN 81 MG TABLET EC PO SCH (08:46)
[2020-10-15] MEDS: ALBUTEROL HFA 90 MCG/SPRAY INH PRN (08:56)
[2020-10-15] MEDS: SODIUM CHLORIDE FLUSH 10ML SYR IVF SCH ×3 (09:00→20:11)
[2020-10-15] MEDS ORDERED: SUGAMMADEX 200 MG/2 ML IVPush ONE (10:03)
[2020-10-15] MEDS ORDERED: ROCURONIUM 10MG/ML,5ML ONE (10:03)
[2020-10-15] MEDS ORDERED: PROPOFOL 10 MG/ML, 20ML ONE (10:03)
[2020-10-15] MEDS ORDERED: ONDANSETRON 2MG/ML, 2ML ONE (10:03)
[2020-10-15] MEDS ORDERED: SUCCINYLCHOLINE 20 MG/ML, 10ML ONE (10:03)
[2020-10-15 10:10] LABS: BAND#(MANUAL) 0.72 x10^3/uL; BANDS%(MANUAL) 3 % (0-7); EOS#(MANUAL) 0.24 x10^3/uL (0.0-0.4); EOS% (MANUAL) 1 % (1-7); LYMPHS% (MANUAL) 5 % (22-44); MD YES; METAMYELOCYTES# (MANUAL) 0.48 x10^3/uL (0-0); METAMYELOCYTES% (MANUAL) 2 % (0-1); MONOS#(MANUAL) 1.67 x10^3/uL (0.3-2.7); MONOS% (MANUAL) 7 % (2-9); MYELOCYTES# (MANUAL) 0.48 x10^3/uL (0-0); MYELOCYTES% (MANUAL) 2 % (0-0); PROGRANULOCYTES# (MANUAL) 0.24 x10^3/uL (0-0); PROGRANULOCYTES% (MANUAL) 1 % (0-0); SEG#(MANUAL) 18.88 x10^3/uL (1.8-6.8); SEGS% (MANUAL) 79 % (42-75)
[2020-10-15 10:11] LABS: TOXIC GRAN 1+
[2020-10-15 10:12] LABS: <PLATELET ESTIMATE> ADEQUATE; <PLT MORPHOLOGY> NORMAL PLT MORPH; <RBC MORPHOLOGY> NORMAL
[2020-10-15] MEDS: OxyconTIN ER 10 MG TAB.ER PO SCH ×2 (10:56→22:30)
[2020-10-15] MEDS: VANCOMYCIN 2,500 MG in SODIUM CHLORIDE 0.9% 500 ML IV SCH (12:00)
[2020-10-15] MEDS ORDERED: CHLORHEXIDINE 15 ML UDC MM ONE (12:00)
[2020-10-15] MEDS ORDERED: MIDAZOLAM 1 MG/ML, 2ML ONE (12:35)
[2020-10-15] MEDS ORDERED: FENTANYL PF 250 MCG/5ML ONE (14:32)
[2020-10-15] MEDS ORDERED: MIDAZOLAM 1 MG/ML, 5ML ONE (14:32)
[2020-10-15] MEDS ORDERED: PROPOFOL 100 ML IV ONE (15:11)
[2020-10-15] MEDS ORDERED: ONDANSETRON 2MG/ML, 2ML IV PRN (16:00)
[2020-10-15] MEDS: PROPOFOL 100 ML IV PRN ×2 (16:04→20:15)
[2020-10-15] MEDS ORDERED: GLUCAGON 1 MG IM PRN (16:30)
[2020-10-15] MEDS ORDERED: PHARMACY MAY ADJ FOR RENAL FX MC SCH (16:30)
[2020-10-15] MEDS ORDERED: LIDOCAINE-MPF 1%, 2ML ENDO PRN (16:30)
[2020-10-15] MEDS ORDERED: LACTULOSE 20 GM/30 ML UDC NG PRN (16:30)
[2020-10-15] MEDS ORDERED: SENNA/DOCUSATE TABLET NG PRN (16:30)
[2020-10-15] MEDS ORDERED: BISACODYL 10 MG SUPP PR PRN (16:30)
[2020-10-15] MEDS ORDERED: DEXTROSE 4 GM TAB.CHEW PO PRN (16:30)
[2020-10-15] MEDS ORDERED: SENNA 176 MG/5 ML ORAL SOL NG PRN (16:30)
[2020-10-15] MEDS: INSULIN DEGLUDEC SQ SCH (16:54)
[2020-10-15] MEDS: INSULIN REGULAR, HUMAN 100 UNITS/ML, 3ML MEDIUM DOSE SS SQ-INSULIN SCH ×2 (17:22→20:12)
[2020-10-15] MEDS: POTASSIUM CHLORIDE 20 MEQ in LACTATED RINGERS 1,000 ML IV SCH (17:22)
[2020-10-15] MEDS: ALBUTEROL/IPRATROPIUM 2.5MG/0.5MG, 3 ML NPPB SCH ×2 (18:51→23:00)
[2020-10-15] MEDS: ATORVASTATIN 10 MG TABLET PO SCH (20:12)
[2020-10-16] MEDS: FENTANYL PF 100 MCG/2ML IVPush PRN ×8 (00:02→21:12)
[2020-10-16] MEDS: POTASSIUM CHLORIDE 20 MEQ in LACTATED RINGERS 1,000 ML IV SCH (02:28)
[2020-10-16] MEDS: PROPOFOL 100 ML IV PRN ×2 (02:41→06:50)
[2020-10-16] MEDS: ALBUTEROL/IPRATROPIUM 2.5MG/0.5MG, 3 ML NPPB SCH ×6 (03:00→23:00)
[2020-10-16 04:00] VITALS: BP 128/65
[2020-10-16 05:10] LABS: MEAN CORPUSCULAR HEMOGLOBIN 30.5 pg (27.5-34.5); MEAN CORPUSCULAR HGB CONC 33.1 g/dL (33.2-36.2); MEAN PLATELET VOLUME 7.2 fL (7.4-10.4); PLATELET COUNT 350 x10^3/uL (130-400); RED BLOOD COUNT 3.99 x10^6/uL (4.38-5.82); RED CELL DISTRIBUTION WIDTH 15.9 % (9.4-14.8)
[2020-10-16] MEDS: PIPERACILLIN/TAZO/PMX 4.5GM 100 ML IV SCH ×4 (05:18→22:05)
[2020-10-16] MEDS: GUAIFENESIN 200 MG TABLET PO SCH ×4 (05:19→20:04)
[2020-10-16 05:20] LABS: ALANINE AMINOTRANSFERASE 31 U/L (12-78); ALBUMIN 1.6 g/dL (3.4-5.0); ANION GAP 6 mmol/L (5-15); CALCIUM 7.7 mg/dL (8.5-10.1); CHLORIDE 101 mmol/L (98-107); CREATININE 1.43 mg/dL (0.7-1.3)
[2020-10-16 05:21] LABS: MD YES
[2020-10-16 05:24] LABS: ALKALINE PHOSPHATASE 90 U/L (45-117); BILIRUBIN,TOTAL 0.4 mg/dL (0.2-1.0); TOTAL PROTEIN 6.1 g/dL (6.4-8.2); TROPONIN I < 0.015 ng/mL (0.000-0.045)
[2020-10-16 05:56] LABS: BAND#(MANUAL) 0.53 x10^3/uL; BANDS%(MANUAL) 2 % (0-7); LYMPH#(MANUAL) 2.13 x10^3/uL (1-3.4); LYMPHS% (MANUAL) 8 % (22-44); METAMYELOCYTES# (MANUAL) 0.53 x10^3/uL (0-0); METAMYELOCYTES% (MANUAL) 2 % (0-1); MONOS% (MANUAL) 6 % (2-9); SEG#(MANUAL) 21.81 x10^3/uL (1.8-6.8); SEGS% (MANUAL) 82 % (42-75)
[2020-10-16 05:58] LABS: <PLATELET ESTIMATE> ADEQUATE; <PLT MORPHOLOGY> NORMAL PLT MORPH; <RBC MORPHOLOGY> NORMAL; TOXIC GRAN 1+
[2020-10-16] MEDS: ENOXAPARIN 40 MG/0.4 ML SQ SCH (06:01)
[2020-10-16] MEDS: INSULIN REGULAR, HUMAN 100 UNITS/ML, 3ML MEDIUM DOSE SS SQ-INSULIN SCH ×4 (06:45→20:04)
[2020-10-16] MEDS: ASPIRIN 81 MG TABLET EC PO SCH (09:00)
[2020-10-16] MEDS: SODIUM CHLORIDE FLUSH 10ML SYR IVF SCH ×4 (09:00→20:09)
[2020-10-16] MEDS ORDERED: PANTOPRAZOLE 40 MG IV IVPush SCH (09:00)
[2020-10-16] MEDS: OxyconTIN ER 10 MG TAB.ER PO SCH ×2 (10:30→16:57)
--- NOTE | 2020-10-16 10:59 | NUR ---
TF Recommendations if pt remains intubated On propofol: 60 ml/hr Vital HP Off propofol: 65 ml/hr Vital HP
[2020-10-16] MEDS ORDERED: ACETAMINOPHEN 650 MG/20.3 ML UDC PO PRN (11:30)
[2020-10-16] MEDS: VANCOMYCIN 2,500 MG in SODIUM CHLORIDE 0.9% 500 ML IV SCH (12:11)
[2020-10-16] MEDS: INSULIN DEGLUDEC SQ SCH (16:57)
[2020-10-16] MEDS ORDERED: ALBUTEROL-IPRATROPIUM MDI INH INH PRN (17:00)
[2020-10-16] MEDS: ALBUTEROL-IPRATROPIUM MDI INH INH SCH ×2 (19:00→23:00)
[2020-10-16] MEDS: ATORVASTATIN 10 MG TABLET PO SCH (20:04)
[2020-10-17] MEDS: FENTANYL PF 100 MCG/2ML IVPush PRN ×3 (00:19→08:01)
[2020-10-17 04:00] VITALS: BP 132/45
[2020-10-17] MEDS: ALBUTEROL-IPRATROPIUM MDI INH INH SCH ×6 (04:31→22:47)
[2020-10-17] MEDS: PIPERACILLIN/TAZO/PMX 4.5GM 100 ML IV SCH ×4 (04:39→22:47)
[2020-10-17] MEDS: ENOXAPARIN 40 MG/0.4 ML SQ SCH (05:03)
[2020-10-17] MEDS: GUAIFENESIN 200 MG TABLET PO SCH ×4 (05:03→20:12)
[2020-10-17] MEDS: INSULIN REGULAR, HUMAN 100 UNITS/ML, 3ML MEDIUM DOSE SS SQ-INSULIN SCH ×4 (07:00→20:14)
[2020-10-17 07:30] LABS: ANION GAP 5 mmol/L (5-15); CALCIUM 7.6 mg/dL (8.5-10.1); CHLORIDE 101 mmol/L (98-107)
[2020-10-17 07:36] LABS: CREATININE 1.11 mg/dL (0.7-1.3)
[2020-10-17] MEDS: ASPIRIN 81 MG TABLET CHEW PO SCH (08:01)
[2020-10-17] MEDS: SODIUM CHLORIDE FLUSH 10ML SYR IVF SCH ×2 (09:00→20:12)
[2020-10-17 10:33] VITALS: BP 149/78
[2020-10-17] MEDS: OxyconTIN ER 10 MG TAB.ER PO SCH ×2 (11:49→22:47)
[2020-10-17] MEDS: morphine SULFATE 10 MG/ML, 1ML IV PRN ×3 (12:00→20:13)
[2020-10-17 12:23] VITALS: BP 138/78
[2020-10-17] MEDS: VANCOMYCIN 2,500 MG in SODIUM CHLORIDE 0.9% 500 ML IV SCH (12:40)
[2020-10-17] MEDS: INSULIN DEGLUDEC SQ SCH (18:04)
[2020-10-17] MEDS: ENOXAPARIN 30 MG/0.3 ML SQ SCH (18:04)
[2020-10-17 19:06] VITALS: BP 132/76
[2020-10-17] MEDS: ATORVASTATIN 10 MG TABLET PO SCH (20:12)
[2020-10-18 00:28] VITALS: BP 113/55
[2020-10-18] MEDS: ALBUTEROL-IPRATROPIUM MDI INH INH SCH ×6 (03:24→22:53)
[2020-10-18] MEDS: morphine SULFATE 10 MG/ML, 1ML IV PRN ×5 (03:24→21:59)
[2020-10-18 03:42] VITALS: BP 130/72
[2020-10-18] MEDS: DEXTROSE 50%, 50ML SYRINGE IVPush PRN (04:14)
[2020-10-18 05:11] LABS: BASOPHILS % (AUTO) 1 % (0-1); EOSINOPHILS % (AUTO) 0 % (1-7); LYMPHOCYTES % (AUTO) 7 % (22-44); MEAN CORPUSCULAR HEMOGLOBIN 29.8 pg (27.5-34.5); MEAN CORPUSCULAR HGB CONC 32.6 g/dL (33.2-36.2); MONOCYTES % (AUTO) 8 % (2-9); NEUTROPHILS % (AUTO) 84 % (42-75); PLATELET COUNT 391 x10^3/uL (130-400); RED BLOOD COUNT 3.59 x10^6/uL (4.38-5.82)
[2020-10-18] MEDS: PIPERACILLIN/TAZO/PMX 4.5GM 100 ML IV SCH ×4 (05:17→22:53)
[2020-10-18] MEDS: GUAIFENESIN 200 MG TABLET PO SCH ×4 (05:18→20:13)
[2020-10-18] MEDS: ENOXAPARIN 30 MG/0.3 ML SQ SCH ×2 (05:18→17:23)
[2020-10-18 05:42] LABS: ANION GAP 6 mmol/L (5-15); CALCIUM 7.6 mg/dL (8.5-10.1); CHLORIDE 102 mmol/L (98-107); CREATININE 1.13 mg/dL (0.7-1.3)
[2020-10-18 06:04] LABS: MD SCAN
[2020-10-18] MEDS: INSULIN REGULAR, HUMAN 100 UNITS/ML, 3ML MEDIUM DOSE SS SQ-INSULIN SCH ×4 (06:40→20:17)
[2020-10-18 07:05] VITALS: BP 142/85
[2020-10-18] MEDS: ASPIRIN 81 MG TABLET CHEW PO SCH (08:26)
[2020-10-18] MEDS: SODIUM CHLORIDE FLUSH 10ML SYR IVF SCH ×2 (08:27→20:14)
[2020-10-18] MEDS: OxyconTIN ER 10 MG TAB.ER PO SCH ×3 (10:39→23:53)
[2020-10-18 11:58] VITALS: BP 134/74
[2020-10-18] MEDS: VANCOMYCIN 2,500 MG in SODIUM CHLORIDE 0.9% 500 ML IV SCH (12:47)
[2020-10-18 16:00] VITALS: BP 137/82
[2020-10-18] MEDS: INSULIN DEGLUDEC SQ SCH (17:28)
[2020-10-18] MEDS: GUAIFENESIN/DM 200-20MG, 10ML UDC PO PRN (18:27)
[2020-10-18 18:44] VITALS: BP 131/70
[2020-10-18] MEDS: ATORVASTATIN 10 MG TABLET PO SCH (20:13)
[2020-10-18] MEDS: VANCOMYCIN 2,000 MG in SODIUM CHLORIDE 0.9% 500 ML IV SCH (23:53)
[2020-10-19] MEDS ORDERED: VANCOMYCIN 2,500 MG in SODIUM CHLORIDE 0.9% 500 ML IV SCH
[2020-10-19 01:11] VITALS: BP 113/53
[2020-10-19] MEDS: ALBUTEROL-IPRATROPIUM MDI INH INH SCH ×6 (02:48→23:42)
[2020-10-19] MEDS: morphine SULFATE 10 MG/ML, 1ML IV PRN (02:50)
[2020-10-19] MEDS: PIPERACILLIN/TAZO/PMX 4.5GM 100 ML IV SCH ×4 (05:05→23:42)
[2020-10-19] MEDS: ENOXAPARIN 30 MG/0.3 ML SQ SCH ×2 (05:05→16:33)
[2020-10-19 05:42] LABS: ANION GAP 5 mmol/L (5-15); CALCIUM 7.6 mg/dL (8.5-10.1); CHLORIDE 99 mmol/L (98-107); CREATININE 1.16 mg/dL (0.7-1.3)
[2020-10-19 05:47] LABS: MEAN CORPUSCULAR HEMOGLOBIN 29.4 pg (27.5-34.5); MEAN CORPUSCULAR HGB CONC 32.1 g/dL (33.2-36.2); MEAN PLATELET VOLUME 6.8 fL (7.4-10.4); PLATELET COUNT 508 x10^3/uL (130-400); RED BLOOD COUNT 3.65 x10^6/uL (4.38-5.82)
[2020-10-19] MEDS: OxyconTIN ER 10 MG TAB.ER PO SCH ×3 (05:52→17:34)
[2020-10-19] MEDS: GUAIFENESIN 200 MG TABLET PO SCH ×4 (05:52→22:01)
[2020-10-19 06:19] LABS: MD YES
[2020-10-19 06:22] LABS: EOS#(MANUAL) 0.23 x10^3/uL (0.0-0.4); EOS% (MANUAL) 1 % (1-7); LYMPH#(MANUAL) 0.45 x10^3/uL (1-3.4); LYMPHS% (MANUAL) 2 % (22-44); METAMYELOCYTES# (MANUAL) 0.23 x10^3/uL (0-0); METAMYELOCYTES% (MANUAL) 1 % (0-1); MONOS#(MANUAL) 0.91 x10^3/uL (0.3-2.7); MONOS% (MANUAL) 4 % (2-9)
[2020-10-19 06:23] LABS: MYELOCYTES# (MANUAL) 0.23 x10^3/uL (0-0); MYELOCYTES% (MANUAL) 1 % (0-0); SEGS% (MANUAL) 91 % (42-75)
[2020-10-19 06:24] LABS: <PLATELET ESTIMATE> INCREASED; <PLT MORPHOLOGY> NORMAL PLT MORPH; <RBC MORPHOLOGY> NORMAL
[2020-10-19] MEDS: INSULIN REGULAR, HUMAN 100 UNITS/ML, 3ML MEDIUM DOSE SS SQ-INSULIN SCH ×4 (06:28→21:00)
[2020-10-19] MEDS: ASPIRIN 81 MG TABLET CHEW PO SCH (07:47)
[2020-10-19] MEDS: SODIUM CHLORIDE FLUSH 10ML SYR IVF SCH ×2 (07:47→22:01)
[2020-10-19 07:58] VITALS: BP 122/58
[2020-10-19] MEDS: VANCOMYCIN 2,000 MG in SODIUM CHLORIDE 0.9% 500 ML IV SCH (12:12)
[2020-10-19 12:49] VITALS: BP 114/57
[2020-10-19] MEDS: INSULIN DEGLUDEC SQ SCH (17:34)
[2020-10-19] MEDS ORDERED: FLU VACC QS2020-21(6MOS UP)/PF 60MCG/0.5 ML SYR IM-VACC ONE (18:00)
[2020-10-19] MEDS ORDERED: PNEUMOC 13-VALENT VACC, 0.5 ML IM-VACC ONE (18:00)
[2020-10-19 19:59] VITALS: BP 156/68
[2020-10-19] MEDS: ATORVASTATIN 10 MG TABLET PO SCH (22:01)
[2020-10-20] MEDS: OxyconTIN ER 10 MG TAB.ER PO SCH ×4 (00:33→19:27)
[2020-10-20] MEDS: VANCOMYCIN 2,000 MG in SODIUM CHLORIDE 0.9% 500 ML IV SCH (00:33)
[2020-10-20 01:46] VITALS: BP 150/71
[2020-10-20] MEDS: morphine SULFATE 10 MG/ML, 1ML IV PRN (03:36)
[2020-10-20] MEDS: ENOXAPARIN 30 MG/0.3 ML SQ SCH ×2 (04:16→19:27)
[2020-10-20] MEDS: ALBUTEROL-IPRATROPIUM MDI INH INH SCH ×6 (04:17→23:20)
[2020-10-20] MEDS: PIPERACILLIN/TAZO/PMX 4.5GM 100 ML IV SCH (05:55)
[2020-10-20] MEDS: GUAIFENESIN 200 MG TABLET PO SCH ×4 (05:56→19:27)
[2020-10-20 06:24] LABS: MEAN CORPUSCULAR HEMOGLOBIN 30.4 pg (27.5-34.5); MEAN CORPUSCULAR HGB CONC 32.8 g/dL (33.2-36.2); MEAN PLATELET VOLUME 6.9 fL (7.4-10.4); PLATELET COUNT 441 x10^3/uL (130-400); RED BLOOD COUNT 3.35 x10^6/uL (4.38-5.82); RED CELL DISTRIBUTION WIDTH 15.8 % (9.4-14.8)
[2020-10-20 06:34] LABS: ANION GAP 5 mmol/L (5-15); CALCIUM 7.7 mg/dL (8.5-10.1); CHLORIDE 100 mmol/L (98-107); CREATININE 1.07 mg/dL (0.7-1.3)
[2020-10-20] MEDS: INSULIN REGULAR, HUMAN 100 UNITS/ML, 3ML MEDIUM DOSE SS SQ-INSULIN SCH ×4 (06:45→20:16)
[2020-10-20 07:19] LABS: MD YES
[2020-10-20 07:20] LABS: LYMPHS% (MANUAL) 2 % (22-44); METAMYELOCYTES% (MANUAL) 1 % (0-1); MONOS#(MANUAL) 1.19 x10^3/uL (0.3-2.7); MONOS% (MANUAL) 6 % (2-9); SEG#(MANUAL) 18.02 x10^3/uL (1.8-6.8); SEGS% (MANUAL) 91 % (42-75)
[2020-10-20 07:21] LABS: <PLATELET ESTIMATE> INCREASED; <PLT MORPHOLOGY> NORMAL PLT MORPH; POLYCHROMASIA 1+
[2020-10-20] MEDS: SODIUM CHLORIDE FLUSH 10ML SYR IVF SCH ×2 (08:34→21:00)
[2020-10-20] MEDS: ASPIRIN 81 MG TABLET CHEW PO SCH (08:34)
[2020-10-20] MEDS: POLYETHYLENE GLYCOL 17 GM PACKET NG SCH (08:35)
[2020-10-20 09:30] VITALS: BP 138/63
[2020-10-20] MEDS: AMPICILLIN/SULBACTAM 3 GM in SODIUM CHLORIDE 0.9% 100 ML IV SCH ×2 (10:00→16:00)
[2020-10-20 13:00] VITALS: BP 129/43
[2020-10-20] MEDS: INSULIN DEGLUDEC SQ SCH (18:00)
[2020-10-20] MEDS: ATORVASTATIN 10 MG TABLET PO SCH (19:28)
[2020-10-20 20:27] VITALS: BP 136/63
[2020-10-20] MEDS: OXYcodone/APAP 5/325MG TABLET PO PRN (22:54)
[2020-10-21] MEDS: OxyconTIN ER 10 MG TAB.ER PO SCH ×4 (01:57→19:43)
[2020-10-21] MEDS: AMPICILLIN/SULBACTAM 3 GM in SODIUM CHLORIDE 0.9% 100 ML IV SCH ×4 (01:57→19:43)
[2020-10-21 02:07] VITALS: BP 148/53
[2020-10-21] MEDS: ALBUTEROL-IPRATROPIUM MDI INH INH SCH ×6 (03:11→23:38)
[2020-10-21 05:55] LABS: BASOPHILS % (AUTO) 1 % (0-1); EOSINOPHILS % (AUTO) 1 % (1-7); LYMPHOCYTES % (AUTO) 11 % (22-44); MEAN CORPUSCULAR HEMOGLOBIN 30.1 pg (27.5-34.5); MEAN CORPUSCULAR HGB CONC 33.3 g/dL (33.2-36.2); MEAN PLATELET VOLUME 6.6 fL (7.4-10.4); MONOCYTES % (AUTO) 8 % (2-9); NEUTROPHILS % (AUTO) 80 % (42-75); PLATELET COUNT 442 x10^3/uL (130-400); RED BLOOD COUNT 3.17 x10^6/uL (4.38-5.82); RED CELL DISTRIBUTION WIDTH 16.1 % (9.4-14.8)
[2020-10-21 06:02] LABS: ANION GAP 5 mmol/L (5-15); CALCIUM 7.7 mg/dL (8.5-10.1); CHLORIDE 102 mmol/L (98-107); TRIGLYCERIDES 136 mg/dL (50-200)
[2020-10-21 06:12] LABS: MD NO
[2020-10-21] MEDS: GUAIFENESIN 200 MG TABLET PO SCH ×4 (06:20→20:39)
[2020-10-21] MEDS: DEXTROSE 50%, 50ML SYRINGE IVPush PRN (06:36)
[2020-10-21] MEDS: INSULIN REGULAR, HUMAN 100 UNITS/ML, 3ML MEDIUM DOSE SS SQ-INSULIN SCH ×4 (07:00→20:52)
[2020-10-21 07:53] VITALS: BP 137/44
[2020-10-21] MEDS: ASPIRIN 81 MG TABLET CHEW PO SCH (08:15)
[2020-10-21] MEDS: GUAIFENESIN/DM 200-20MG, 10ML UDC PO PRN (08:15)
[2020-10-21] MEDS: ENOXAPARIN 30 MG/0.3 ML SQ SCH ×2 (08:15→19:43)
[2020-10-21] MEDS: SODIUM CHLORIDE FLUSH 10ML SYR IVF SCH ×2 (08:16→20:40)
[2020-10-21] MEDS: POLYETHYLENE GLYCOL 17 GM PACKET NG SCH (08:18)
[2020-10-21 13:17] VITALS: BP 121/67
[2020-10-21] MEDS ORDERED: TRESIBA 40 UNIT SQ SCH (18:00)
[2020-10-21] MEDS: ATORVASTATIN 10 MG TABLET PO SCH (20:39)
[2020-10-21] MEDS: OXYcodone/APAP 5/325MG TABLET PO PRN (20:39)
[2020-10-21 21:00] VITALS: BP 133/51
[2020-10-22 01:41] VITALS: BP 129/58
[2020-10-22] MEDS: AMPICILLIN/SULBACTAM 3 GM in SODIUM CHLORIDE 0.9% 100 ML IV SCH ×4 (02:02→20:04)
[2020-10-22] MEDS: OxyconTIN ER 10 MG TAB.ER PO SCH ×4 (02:02→20:05)
[2020-10-22] MEDS: ALBUTEROL-IPRATROPIUM MDI INH INH SCH ×6 (02:58→23:32)
[2020-10-22 04:51] LABS: BASOPHILS % (AUTO) 1 % (0-1); EOSINOPHILS % (AUTO) 1 % (1-7); LYMPHOCYTES % (AUTO) 9 % (22-44); MEAN CORPUSCULAR HEMOGLOBIN 30.5 pg (27.5-34.5); MEAN CORPUSCULAR HGB CONC 33.4 g/dL (33.2-36.2); MEAN PLATELET VOLUME 6.5 fL (7.4-10.4); MONOCYTES % (AUTO) 9 % (2-9); NEUTROPHILS % (AUTO) 79 % (42-75); PLATELET COUNT 463 x10^3/uL (130-400); RED BLOOD COUNT 3.21 x10^6/uL (4.38-5.82); RED CELL DISTRIBUTION WIDTH 15.8 % (9.4-14.8)
[2020-10-22 04:52] LABS: HCT (SEDRATE) 29.5 % (39.2-51.8)
[2020-10-22 05:01] LABS: ALBUMIN 1.5 g/dL (3.4-5.0); ANION GAP 2 mmol/L (5-15); CALCIUM 7.8 mg/dL (8.5-10.1); CHLORIDE 101 mmol/L (98-107)
[2020-10-22 05:09] LABS: ALANINE AMINOTRANSFERASE 50 U/L (12-78); ALKALINE PHOSPHATASE 84 U/L (45-117); BILIRUBIN,TOTAL 0.6 mg/dL (0.2-1.0); CREATININE 0.94 mg/dL (0.7-1.3); TOTAL PROTEIN 6.7 g/dL (6.4-8.2)
[2020-10-22 06:16] LABS: MD SCAN
[2020-10-22] MEDS: GUAIFENESIN 200 MG TABLET PO SCH ×4 (06:17→20:05)
[2020-10-22 06:25] VITALS: BP 127/52
[2020-10-22] MEDS: DEXTROSE 50%, 50ML SYRINGE IVPush PRN (06:27)
[2020-10-22] MEDS: INSULIN REGULAR, HUMAN 100 UNITS/ML, 3ML MEDIUM DOSE SS SQ-INSULIN SCH ×4 (07:33→20:21)
[2020-10-22] MEDS: ENOXAPARIN 30 MG/0.3 ML SQ SCH ×2 (07:49→20:05)
[2020-10-22] MEDS: POLYETHYLENE GLYCOL 17 GM PACKET NG SCH (07:50)
[2020-10-22] MEDS: ASPIRIN 81 MG TABLET CHEW PO SCH (07:50)
[2020-10-22] MEDS: SODIUM CHLORIDE FLUSH 10ML SYR IVF SCH ×2 (07:50→20:04)
[2020-10-22 13:50] VITALS: BP 134/92
[2020-10-22] MEDS: TRESIBA 40 UNIT SQ SCH (18:00)
[2020-10-22] MEDS: ATORVASTATIN 10 MG TABLET PO SCH (20:04)
[2020-10-22 20:25] VITALS: BP 153/73
[2020-10-23 01:01] VITALS: BP 156/78
[2020-10-23] MEDS: OxyconTIN ER 10 MG TAB.ER PO SCH ×4 (01:53→19:47)
[2020-10-23] MEDS: AMPICILLIN/SULBACTAM 3 GM in SODIUM CHLORIDE 0.9% 100 ML IV SCH ×4 (01:54→21:39)
[2020-10-23] MEDS: ALBUTEROL-IPRATROPIUM MDI INH INH SCH ×6 (03:24→23:43)
[2020-10-23] MEDS: OXYcodone/APAP 5/325MG TABLET PO PRN ×3 (03:36→21:42)
[2020-10-23 06:30] VITALS: BP 144/83
[2020-10-23] MEDS: GUAIFENESIN 200 MG TABLET PO SCH ×4 (06:41→19:48)
[2020-10-23] MEDS: INSULIN REGULAR, HUMAN 100 UNITS/ML, 3ML MEDIUM DOSE SS SQ-INSULIN SCH ×4 (06:44→19:54)
[2020-10-23] MEDS: POLYETHYLENE GLYCOL 17 GM PACKET NG SCH (09:00)
[2020-10-23] MEDS: ASPIRIN 81 MG TABLET CHEW PO SCH (09:22)
[2020-10-23] MEDS: SODIUM CHLORIDE FLUSH 10ML SYR IVF SCH ×2 (09:22→19:48)
[2020-10-23] MEDS: ENOXAPARIN 30 MG/0.3 ML SQ SCH ×2 (09:29→19:48)
[2020-10-23 13:35] VITALS: BP 121/67
[2020-10-23] MEDS: TRESIBA 40 UNIT SQ SCH (17:37)
[2020-10-23] MEDS: ATORVASTATIN 10 MG TABLET PO SCH (19:48)
[2020-10-23 19:50] VITALS: BP 122/54
[2020-10-24 01:46] VITALS: BP 129/62
[2020-10-24] MEDS: ALBUTEROL-IPRATROPIUM MDI INH INH SCH ×4 (02:20→15:00)
[2020-10-24] MEDS: OxyconTIN ER 10 MG TAB.ER PO SCH ×2 (02:20→09:05)
[2020-10-24] MEDS: AMPICILLIN/SULBACTAM 3 GM in SODIUM CHLORIDE 0.9% 100 ML IV SCH (03:36)
[2020-10-24] MEDS: OXYcodone/APAP 5/325MG TABLET PO PRN ×2 (03:37→09:43)
[2020-10-24] MEDS: GUAIFENESIN 200 MG TABLET PO SCH ×3 (06:32→15:39)
[2020-10-24] MEDS: INSULIN REGULAR, HUMAN 100 UNITS/ML, 3ML MEDIUM DOSE SS SQ-INSULIN SCH ×3 (06:38→15:42)
[2020-10-24] MEDS ORDERED: ERTAPENEM 1 GM in SODIUM CHLORIDE 0.9% 50 ML IV SCH (08:00)
[2020-10-24 08:09] VITALS: BP 107/44
[2020-10-24] MEDS: SODIUM CHLORIDE FLUSH 10ML SYR IVF SCH (09:00)
[2020-10-24] MEDS: POLYETHYLENE GLYCOL 17 GM PACKET NG SCH (09:00)
[2020-10-24] MEDS: ASPIRIN 81 MG TABLET CHEW PO SCH (09:06)
[2020-10-24] MEDS: ENOXAPARIN 30 MG/0.3 ML SQ SCH (09:13)
[2020-10-24] MEDS ORDERED: OXYcodone/APAP 5/325MG PO (11:42)
[2020-10-24] MEDS ORDERED: ERTA1VIA4 IV (11:42)
[2020-10-24] MEDS ORDERED: TRESIBA SQ (11:42)
[2020-10-24] MEDS ORDERED: SENN-99 PO (11:42)
[2020-10-24 13:33] VITALS: BP 122/70
[2020-10-24] MEDS ORDERED: OxyconTIN ER 10 MG TAB.ER PO SCH (19:30)
== END 2020-10-24 18:40 | disposition home or self-care (01) | DRG 853 ==
LOC: SUATTDRO 13:06 → ED 13:34 → EDIP 14:23 → 4EST 21:18 → 3N 10-11 20:43 → CSU 10-15 14:42 → CCU 10-16 08:56 → 4NE 10-17 10:20
PROVIDERS: ADMIT Hospitalist; ATTEND Internal Medicine
PROC: 5A09457 Assistance with Respiratory Ventilation, 24-96 Consecutive Hours, Continuous Positive Airway Pressure (ICD-10-PCS; 2020-10-09)
PROC: 0BBN0ZZ Excision of Right Pleura, Open Approach (ICD-10-PCS; 2020-10-15)
PROC: 5A1945Z Respiratory Ventilation, 24-96 Consecutive Hours (ICD-10-PCS; 2020-10-15)
PROC: 0BH17EZ Insertion of Endotracheal Airway into Trachea, Via Natural or Artificial Opening (ICD-10-PCS; 2020-10-15)
PROC: 5A09357 Assistance with Respiratory Ventilation, Less than 24 Consecutive Hours, Continuous Positive Airway Pressure (ICD-10-PCS; 2020-10-16)
PROC: 5A09357 Assistance with Respiratory Ventilation, Less than 24 Consecutive Hours, Continuous Positive Airway Pressure (ICD-10-PCS; 2020-10-17)
PROC: 5A09357 Assistance with Respiratory Ventilation, Less than 24 Consecutive Hours, Continuous Positive Airway Pressure (ICD-10-PCS; 2020-10-17)
PROC: 02HV33Z Insertion of Infusion Device into Superior Vena Cava, Percutaneous Approach (ICD-10-PCS; principal; 2020-10-22)
PROC: B5181ZA Fluoroscopy of Superior Vena Cava using Low Osmolar Contrast, Guidance (ICD-10-PCS; 2020-10-22)
PROC: B548ZZA Ultrasonography of Superior Vena Cava, Guidance (ICD-10-PCS; 2020-10-22)
DX: A41.9 Sepsis, unspecified organism (principal); J15.9 Unspecified bacterial pneumonia; J96.01 Acute respiratory failure with hypoxia; N17.0 Acute kidney failure with tubular necrosis; R65.21 Severe sepsis with septic shock; J86.9 Pyothorax without fistula; J44.1 Chronic obstructive pulmonary disease with (acute) exacerbation; J90 Pleural effusion, not elsewhere classified; Z68.41 Body mass index [BMI] 40.0-44.9, adult; Z99.11 Dependence on respirator [ventilator] status; D63.8 Anemia in other chronic diseases classified elsewhere; E66.01 Morbid (severe) obesity due to excess calories; E78.00 Pure hypercholesterolemia, unspecified; N18.2 Chronic kidney disease, stage 2 (mild); Z20.828 Contact with and (suspected) exposure to other viral communicable diseases; E78.5 Hyperlipidemia, unspecified; E87.5 Hyperkalemia; G47.33 Obstructive sleep apnea (adult) (pediatric); I25.10 Atherosclerotic heart disease of native coronary artery without angina pectoris; I25.2 Old myocardial infarction; Z79.4 Long term (current) use of insulin; Z82.49 Family history of ischemic heart disease and other diseases of the circulatory system; Z82.5 Family history of asthma and other chronic lower respiratory diseases; Z87.891 Personal history of nicotine dependence
CPT/HCPCS: 36415; 36600; 84145; 96361; 96365; 96366; 96372; 99285; S0020; 36573; 71045; 71250; 80048; 80053; 80202; 81003; 82040; 82533; 82728; 82803; 82947; 82962; 83605; 83615; 83735; 83880; 84100; 84478; 84484; 85025; 85049; 85379; 85384; 85610; 85651; 85730; 86140; 87040; 87070; 87075; 87077; 87081; 87086; 87181; 87205; 87635; 88305; 93005; 94002; 94003; 94640; 94660; C1729; G0378; J0171; J0295; J0456; J0696; J1335; J1644; J1650; J1815; J2250; J2405; J2543; J2704; J3010; J3370; J3480; C1751; C9113; J0330; J2270; J2930; J7030; J7040; J7050; J7120; J7512; U0003

== ENCOUNTER 2020-12-21 13:25 | Outpatient (CLI) | payer OTHER ==
[~2020-12-21 13:25] MED LIST changes: +ERTA1VIA4 IV; +LOSA100T14 PO; +OXYcodone/APAP 5/325MG PO; +SENN-99 PO; +TRESIBA SQ; +TRIA1TAB3 PO
[2020-12-21] MEDS ORDERED: OMNIPAQUE 350 MG/ML, 75ML BOTTLE ONE (13:45)
== END 2020-12-21 23:59 | disposition home or self-care (01) ==
LOC: CFH 13:25
PROVIDERS: ATTEND Internal Medicine Infectious Disease
DX: J47.9 Bronchiectasis, uncomplicated (principal); J84.10 Pulmonary fibrosis, unspecified; I25.10 Atherosclerotic heart disease of native coronary artery without angina pectoris; E11.9 Type 2 diabetes mellitus without complications
CPT/HCPCS: 71260; Q9967

== ENCOUNTER 2021-01-07 09:31 | Outpatient (CLI) | payer OTHER ==
[2021-01-07] MEDS ORDERED: LIDOCAINE 1%, 10ML ONE (09:40)
== END 2021-01-07 23:59 | disposition home or self-care (01) ==
LOC: RAD 09:31
PROVIDERS: ATTEND Surgery
DX: J86.9 Pyothorax without fistula (principal); E11.9 Type 2 diabetes mellitus without complications; E66.01 Morbid (severe) obesity due to excess calories; Z68.38 Body mass index [BMI] 38.0-38.9, adult; Z79.4 Long term (current) use of insulin; Z79.899 Other long term (current) drug therapy
CPT/HCPCS: 32557; 87070; 87075; 87102; 87205; J3490

== ENCOUNTER 2021-02-25 12:45 | Emergency (ER) | payer OTHER ==
[~2021-02-25] VITALS: Ht 172.7 cm; Wt 111.9 kg
--- NOTE | 2021-02-25 13:15 | NUR ---
FIRST CONTACT WITH PT. PT WAS SENT FROM . PT STATED "MY BP IS HIGH. SOMETIMES OVER 250. IT'S ON AND OFF FOR A FEW DAYS." PT DENIES ANY SYMPTOMS AT THIS TIME. PT ALSO C/O BILATERAL FEET EDEMA. PT'S AOX4. RESPS EVEN AND UNLABORED. DENIES MURPHY/VISION CHANGE/N/V. ALL MONITORS IN PLACE. CALL LIGHT WITHIN REACH. PT'S BP IS 133/76 IN ROOM.
--- NOTE | 2021-02-25 13:47 | NUR ---
edmd at bedside for evaluation at this time.
[2021-02-25 14:23] VITALS: BP 152/61
--- NOTE | 2021-02-25 14:24 | NUR ---
pt amb to br with steady gait.
[2021-02-25 14:25] LABS: ALANINE AMINOTRANSFERASE 23 U/L (12-78); ANION GAP 9 mmol/L (5-15); CALCIUM 9.5 mg/dL (8.5-10.1); CHLORIDE 104 mmol/L (98-107); CREATININE 1.08 mg/dL (0.7-1.3)
[2021-02-25 14:29] LABS: ALKALINE PHOSPHATASE 121 U/L (45-117); BILIRUBIN,TOTAL 0.6 mg/dL (0.2-1.0); TOTAL PROTEIN 8.7 g/dL (6.4-8.2); TROPONIN I < 0.015 ng/mL (0.000-0.045)
[2021-02-25 14:42] LABS: BASOPHILS % (AUTO) 0 % (0-1); EOSINOPHILS % (AUTO) 2 % (1-7); LYMPHOCYTES % (AUTO) 14 % (22-44); MEAN CORPUSCULAR HEMOGLOBIN 29.9 pg (27.5-34.5); MEAN CORPUSCULAR HGB CONC 33.9 g/dL (33.2-36.2); MEAN PLATELET VOLUME 7.7 fL (7.4-10.4); MONOCYTES % (AUTO) 9 % (2-9); NEUTROPHILS % (AUTO) 76 % (42-75); PLATELET COUNT 246 x10^3/uL (130-400); RED BLOOD COUNT 5.33 x10^6/uL (4.38-5.82); RED CELL DISTRIBUTION WIDTH 16.5 % (9.4-14.8)
[2021-02-25 14:48] LABS: MD NO
--- NOTE | 2021-02-25 15:19 | NUR ---
Patient given discharge instructions and they have confirmed that they understand the instructions.
== END 2021-02-25 15:20 | disposition home or self-care (01) ==
LOC: ED 15:10
DX: I10 Essential (primary) hypertension (principal); E11.9 Type 2 diabetes mellitus without complications; E78.00 Pure hypercholesterolemia, unspecified; J44.9 Chronic obstructive pulmonary disease, unspecified; Z87.891 Personal history of nicotine dependence
CPT/HCPCS: 36415; 71045; 80053; 83735; 83880; 84484; 85025; 93005; 99285